=== PATIENT | male | born 1980 | race African-American/Black ===

== ENCOUNTER 2021-07-31 19:08 | Emergency (ER) | payer SELFPAY ==
[~2021-07-31] VITALS: Ht 185.4 cm; Wt 96.0 kg
[2021-07-31] MEDS ORDERED: MORPHINE SULFATE 4 MG/ML CPJ (NOT FOR IM USE) IV STA (20:18)
[2021-07-31] MEDS ORDERED: ONDANSETRON HCL 4MG/2ML INJ IV STA (20:18)
[2021-07-31] MEDS ORDERED: SODIUM CHLORIDE 0.9% 1,000 ML IV ONE (20:30)
[2021-07-31] MEDS ORDERED: MORPHINE SULFATE 4 MG/ML CPJ (NOT FOR IM USE) IV ONE (20:45)
[2021-07-31] MEDS ORDERED: ETOMIDATE 2MG/ML 10ML VIAL IV ONE (20:45)
[2021-07-31 22:34] LABS: BASOPHILS % 0.5 % (0.0-2.0); EOSINOPHILS % 0.2 % (0.0-5.0); HEMATOCRIT. 41.2 % (42.0-52.0); HEMOGLOBIN. 13.8 g/dL (14.0-18.0); LYMPHOCYTES % 8.2 % (20.0-50.0); MEAN CORPUSCULAR HEMOGLOBIN 29.7 pg (28.0-32.0); MONOCYTES % 4.1 % (2.0-8.0); PLATELET 230 x1000/uL (130-400); RED BLOOD CELL COUNT 4.63 mill/uL (4.7-6.1); RED CELL DISTRIBUTION WIDTH 13.3 % (11.6-14.6)
[2021-07-31 22:41] LABS: CHLORIDE 112 mEq/L (98-107)
[2021-07-31 22:44] LABS: ETHANOL BLOOD < 10 mg/dL
[2021-08-01] MEDS ORDERED: IBUP-2028 MT (01:34)
[2021-08-01 03:20] VITALS: BP 132/72
[2021-08-01 03:57] LABS: CANNABINOID URINE SCREEN PRESUMTIVE POSITIVE (NEGATIVE); METHADONE URINE SCREEN NEGATIVE (NEGATIVE); OPIATES URINE SCREEN PRESUMTIVE POSITIVE (NEGATIVE); PHENCYCLIDINE URINE SCREEN NEGATIVE (NEGATIVE)
[2021-08-01 04:01] LABS: *AMPHETAMINES SCREEN URINE NEGATIVE (NEGATIVE); *BARBITURATES SCREEN URINE NEGATIVE (NEGATIVE); *BENZODIAZEPINES SCREEN URINE NEGATIVE (NEGATIVE); *COCAINE SCREEN URINE NEGATIVE (NEGATIVE)
== END 2021-08-01 03:32 | disposition home or self-care (01) ==
LOC: ER 19:08
DX: S43.085A Other dislocation of left shoulder joint, initial encounter (principal); X58.XXXA Exposure to other specified factors, initial encounter; Y93.89 Activity, other specified; Y92.89 Other specified places as the place of occurrence of the external cause; Y99.8 Other external cause status
CPT/HCPCS: 23650; 36415; 73030; 73200; 80053; 80305; 80320; 85025; 96361; 96374; 99152; 99285; J2270; J2405; J3490; J7030; L3670; G0480

== ENCOUNTER 2021-08-11 20:00 | Emergency (ER) | payer SELFPAY ==
[~2021-08-11] VITALS: Ht 185.4 cm; Wt 90.0 kg
[~2021-08-11 20:00] MED LIST: IBUP-2028 MT
[2021-08-11] MEDS ORDERED: AMOX-424 MT (22:15)
[2021-08-11] MEDS ORDERED: HYDR-4001 MT (22:15)
[2021-08-11] MEDS ORDERED: HYDROCODONE/ACETAMINOPHEN 5/325MG TABLET PO ONE (22:15)
[2021-08-11] MEDS ORDERED: IBUP-2030 MT (22:15)
[2021-08-11 22:20] VITALS: BP 126/83
== END 2021-08-11 22:27 | disposition home or self-care (01) ==
LOC: ER 20:00
DX: K04.7 Periapical abscess without sinus (principal)
CPT/HCPCS: 99283